=== PATIENT | male | born 1940 | race Hispanic/Latino ===

== ENCOUNTER 2018-06-19 08:59 | Day surgery (SDC) | payer MEDICARE ==
[2018-06-18 15:20] VITALS: BP 118/52
[~2018-06-19] VITALS: Ht 177.8 cm; Wt 93.6 kg
[2018-06-19] VITALS (18 sets, daily range): BP systolic 109–140; BP diastolic 54–68
[~2018-06-19 08:59] MED LIST: ASPI-1181 PO; CEFAZOLIN SODIUM 1 GM VIAL IVP ONE; CYAN1TAB54 PO; ERGO500014 PO; LISI10TA7 PO; METH25VI17 SQ; METO-391 PO; PRAV80TA21 PO; PRED1TAB PO
[2018-06-19] MEDS ORDERED: SODIUM CHLORIDE 0.9% 1000ML 1,000 ML IV ONE (10:15)
[2018-06-19] MEDS ORDERED: CEFAZOLIN SODIUM 1 GM VIAL ONE ×2 (10:16→15:12)
[2018-06-19] MEDS ORDERED: MIDAZOLAM HCL 1 MG/ML 2ML VIAL ONE (13:36)
[2018-06-19] MEDS ORDERED: ONDANSETRON HCL 4 MG/2 ML VIAL ONE ×2 (13:39→17:17)
[2018-06-19] MEDS ORDERED: LIDOCAINE PF 2% 5ML ABBOJECT ONE (13:39)
[2018-06-19] MEDS ORDERED: ROCURONIUM 10MG/1ML SYR 10 MG/ML ML ONE ×2 (13:40→14:48)
[2018-06-19] MEDS ORDERED: PROPOFOL 10 MG/ML 20ML VIAL IV ONE (13:40)
[2018-06-19] MEDS ORDERED: DEXAMETHASONE SOD PHOSPHATE 10MG/ML 1ML VIAL ONE (13:41)
[2018-06-19] MEDS ORDERED: EPINEPHRINE 1 MG/ML 30ML VIAL IJ ONE (13:50)
[2018-06-19] MEDS ORDERED: EPHEDRINE SULFATE 50 MG/ML AMPULE ONE (14:10)
[2018-06-19] MEDS ORDERED: FENTANYL CITRATE PF 50 MCG/1 ML 2ML VIAL ONE (14:49)
[2018-06-19] MEDS ORDERED: NEOSTIGMINE 5MG/5ML SYR IV ONE (16:20)
[2018-06-19] MEDS ORDERED: GLYCOPYRROLATE 1 MG/5 ML SYRINGE ONE (16:20)
[2018-06-19] MEDS ORDERED: MEPERIDINE-PF 25 MG/ML SYG ONE ×2 (16:37→16:52)
[2018-06-19] MEDS ORDERED: CEPH500B PO (17:27)
[2018-06-19] MEDS ORDERED: HYDR-4457 PO (17:27)
[2018-06-19] MEDS ORDERED: NAPR-1192 PO (17:27)
== END 2018-06-19 19:01 | disposition home or self-care (01) ==
LOC: DAH 08:59
PROVIDERS: ATTEND Orthopaedic Surgery
DX: S46.212A Strain of muscle, fascia and tendon of other parts of biceps, left arm, initial encounter (principal); X58.XXXA Exposure to other specified factors, initial encounter; Y93.9 Activity, unspecified; Y92.89 Other specified places as the place of occurrence of the external cause; Y99.9 Unspecified external cause status; M75.102 Unspecified rotator cuff tear or rupture of left shoulder, not specified as traumatic; M19.012 Primary osteoarthritis, left shoulder; Z53.33 Arthroscopic surgical procedure converted to open procedure; Z98.890 Other specified postprocedural states; I21.3 ST elevation (STEMI) myocardial infarction of unspecified site; I25.10 Atherosclerotic heart disease of native coronary artery without angina pectoris; Z95.1 Presence of aortocoronary bypass graft; E78.5 Hyperlipidemia, unspecified; I10 Essential (primary) hypertension; G25.81 Restless legs syndrome; K21.9 Gastro-esophageal reflux disease without esophagitis; G47.33 Obstructive sleep apnea (adult) (pediatric); E11.51 Type 2 diabetes mellitus with diabetic peripheral angiopathy without gangrene; I35.0 Nonrheumatic aortic (valve) stenosis; Z95.5 Presence of coronary angioplasty implant and graft; Z82.49 Family history of ischemic heart disease and other diseases of the circulatory system; Z79.01 Long term (current) use of anticoagulants; G89.29 Other chronic pain
CPT/HCPCS: 23120; 23130; 23412; 82948 ×2; A4218; A4565; A4649 ×6; A4930 ×3; A6204; C1713; G0168; J0171; J0690 ×2; J1100; J2001; J2175 ×2; J2250; J2405 ×2; J2704; J2710; J3010; J3490 ×2; J7030 ×2